=== PATIENT | male | born 1950 | race American Indian/Alaskan Native ===

== ENCOUNTER 2021-08-25 08:14 | Day surgery (SDC) | payer MEDICARE ==
[2021-08-25] MEDS ORDERED: SODIUM CHLORIDE 0.9% 1000 ML 1,000 ML ONE (09:20)
[2021-08-25] MEDS ORDERED: SODIUM CHLORIDE 0.9% 1000 ML 1,000 ML IV SCH (09:30)
[2021-08-25 09:36] VITALS: BP 161/82
[2021-08-25 09:41] LABS: Calcium 9.5 mg/dL (8.4-10.2)
--- NOTE | 2021-08-25 14:32 | Cat Scan Report ---
CT ABDOMEN AND PELVIS WITHOUT AND WITH IV CONTRAST INDICATION: Malignant neoplasm of kidney. COMPARISON: None available. TECHNIQUE: All CT scans at this location are performed using CT dose reduction for ALARA by means of automated e xposure control. Axial CT images were obtained through the abdomen and pelvis before and after 100 cc of Omnipaque 30 0 IV contrast. FINDINGS: Lung Bases: No acute abnormality. Minor atelectatic changes are identified at the right lung base. No suspicious pulmonary lesion. Heart size is borderline and contains a pacemaker device. Skeletal System: Osteopenia and mild degenerative changes in the thoracolumbar spine. No suspicious b cecile lesion. ABDOMEN: Liver: No significant abnormality. Gallbladder: No significant abnormality. Bile Ducts: No significant abnormality. Adrenals: No significant abnormality. Right Kidney and Proximal Ureter: Surgically absent. No recurrent mass or adenopathy in the right bryon al fossa. Left Kidney and Proximal Ureter: There is a 2.6 cm rounded hyperdense lesion in the superior left kid [place]. Internal density measures 59 Hounsfield units on the precontrast images, 59 Hounsfield units on the arterial images, and 62 Hounsfield units on the venous images. This is consistent with a hemorrha gic cyst. The left kidney is otherwise unremarkable. Pancreas: No significant abnormality. Spleen: No significant abnormality. Stomach and Bowel: No significant abnormality. Lymph Nodes: No significant adenopathy. Aorta: Moderate atherosclerotic disease without acute abnormality. IVC: No significant abnormality. Additional Findings: None. PELVIS: Urinary Bladder and Distal Ureters: No significant abnormality. Appendix: Not identified. Colon: No significant abnormality. Free Fluid: None. Lymph Nodes: No significant adenopathy. Additional Findings: Mild prostatomegaly measuring 5.7 cm in diameter. IMPRESSION: 1. No evidence for suspicious renal mass. 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 There is a 2.6 cm he morrhagic cyst in the superior left kidney. No evidence for metastatic disease. Signer Name: Ezekiel Hernandez Jr, MD Signed: 08/25/2021 2:28 PM Workstation Name: [id number]
== END 2021-08-25 14:36 | disposition home or self-care (01) ==
LOC: CATHLABREC 08:14
PROVIDERS: ATTEND Radiology Diagnostic Radiology
DX: C64.9 Malignant neoplasm of unspecified kidney, except renal pelvis (principal); N28.1 Cyst of kidney, acquired; E78.5 Hyperlipidemia, unspecified; J44.9 Chronic obstructive pulmonary disease, unspecified; K21.9 Gastro-esophageal reflux disease without esophagitis; I11.0 Hypertensive heart disease with heart failure; I50.9 Heart failure, unspecified; I25.10 Atherosclerotic heart disease of native coronary artery without angina pectoris; M19.90 Unspecified osteoarthritis, unspecified site; M10.9 Gout, unspecified; Z79.899 Other long term (current) drug therapy; Z88.8 Allergy status to other drugs, medicaments and biological substances; Z79.82 Long term (current) use of aspirin; Z95.0 Presence of cardiac pacemaker; Z98.890 Other specified postprocedural states; Z98.49 Cataract extraction status, unspecified eye; Z72.89 Other problems related to lifestyle; Z82.49 Family history of ischemic heart disease and other diseases of the circulatory system
CPT/HCPCS: 36415; 74178; 80048; 96360; 96361; J7030; Q9967